=== PATIENT | female | born 1980 | race Caucasian/White ===

== ENCOUNTER → 2016-04-27 | Outpatient (REF) | payer OTHER ==
[~2016-04-27] MED LIST: ALBU17IN INH; ALBU17IN2 PO; BUSP10TA PO; HYDR25T PO; LEXA1TAB PO
[2016-04-27 12:47] LABS: BASO % 0.3 % (0.0-1.0); EOS # 0.2 K/mm3 (0.0-0.50); EOS % 2.6 % (0.0-3.0); LARGE UNSTAINED CELL # 0.2 K/mm3 (0.0-0.4); LARGE UNSTAINED CELL % 1.8 % (0.0-4.0); LYMPH # 2.1 K/mm3 (1.5-4.5); LYMPH % 22.6 % (24.0-44.0); MEAN CORPUSCULAR HGB CONC 33.6 g/dl (32.0-36.5); MEAN CORPUSCULAR VOLUME 92.1 fl (80.0-96.0); MONO # 0.4 K/mm3 (0.0-0.8); MONO % 4.7 % (0.0-5.0); NEUTROPHILS # 6.3 K/mm3 (1.8-7.7); PLATELET COUNT, AUTOMATED 209 k/mm3 (150-450); WHITE BLOOD COUNT 9.2 K/mm3 (4.0-10.0)
== END ==
LOC: M LABDRAW1 11:55
PROVIDERS: ATTEND Internal Medicine Rheumatology
DX: M35.9 Systemic involvement of connective tissue, unspecified (principal); Z79.899 Other long term (current) drug therapy

== ENCOUNTER → 2016-06-01 | Outpatient (REF) | payer OTHER ==
[2016-06-01 19:42] LABS: FOLATE 6.9 NG/ML (>5.4); VITAMIN B12 LEVEL 1116 PG/ML (247-911)
[2016-06-01 19:46] LABS: FERRITIN 27 NG/ML (8-252); PERCENT SATURATION 21.6 % (13.2-37.4); TOTAL IRON BINDING CAPACITY 334 UG/DL (250-450)
== END ==
LOC: M LABNEURO 17:11
PROVIDERS: ATTEND Psychiatry & Neurology Neurology
DX: D50.9 Iron deficiency anemia, unspecified (principal)